=== PATIENT | female | born 1970 | race African-American/Black ===

== ENCOUNTER 2016-09-08 15:47 | Emergency (ER) | payer OTHER ==
[~2016-09-08] VITALS: Ht 165.1 cm; Wt 81.8 kg
[~2016-09-08 15:47] MED LIST: FLUO-191 PO; OMEP10CA41 PO
[2016-09-08] MEDS ORDERED: HYDROCODONE/ACETAMINOPHEN 10-325 MG TABLET PO ONE (16:15)
[2016-09-08 17:15] VITALS: BP 134/79
== END 2016-09-08 17:20 | disposition home or self-care (01) ==
LOC: EMS 15:49
DX: K04.7 Periapical abscess without sinus (principal); K02.9 Dental caries, unspecified; F17.210 Nicotine dependence, cigarettes, uncomplicated; F12.90 Cannabis use, unspecified, uncomplicated
CPT/HCPCS: 99283

== ENCOUNTER 2023-04-06 20:52 | Emergency (ER) | payer OTHER ==
[~2023-04-06] VITALS: Ht 165.1 cm; Wt 90.0 kg
[2023-04-06 21:05] VITALS: BP 130/90; PULSE 112; RESP 18; TEMP 98.3
== END 2023-04-06 22:11 | disposition left against medical advice (07) ==
LOC: EMS 20:53
DX: R10.9 Unspecified abdominal pain (principal); Z53.21 Procedure and treatment not carried out due to patient leaving prior to being seen by health care provider
CPT/HCPCS: 99281; Z7502